=== PATIENT | male | born 1985 | race Hispanic/Latino ===

== ENCOUNTER 2018-08-12 06:36 | Day surgery (SDC) | payer OTHER ==
[2018-08-11 15:50] VITALS: BP 140/80
[2018-08-11 15:53] LABS: BASOPHILS % (AUTO) 0.9 % (0.0-5.0); EOSINOPHILS % (AUTO) 0.9 % (0.0-8.0); HEMATOCRIT 46.8 % (42-54); LYMPHOCYTES % (AUTO) 38.3 % (21.0-51.0); MEAN CORPUSCULAR HEMOGLOBIN 28.3 pg (27.0-33.0); MEAN CORPUSCULAR HGB CONC 34.4 g/dL (32.0-36.0); MEAN CORPUSCULAR VOLUME 82.3 fL (79-99); MONOCYTES % (AUTO) 10.5 % (3.0-13.0); NEUTROPHILS % (AUTO) 49.4 % (40.0-77.0); NUCLEATED RED BLOOD CELLS 0.2 % (0.0-0.19); PLATELET COUNT (AUTO) 238 K/uL (130-400); RED BLOOD CELL COUNT(AUTO) 5.69 MIL/uL (4.50-6.20); RED CELL DISTRIBUTION WIDTH 13.7 % (11.0-15.5); WHITE BLOOD COUNT (AUTO) 9.1 K/uL (4.8-10.8)
[2018-08-11 16:02] LABS: CREATININE 0.9 mg/dL (0.5-1.5); POTASSIUM 3.8 mmol/L (3.5-5.1)
[2018-08-12] VITALS (14 sets, daily range): BP systolic 94–137; BP diastolic 55–82
[~2018-08-12] VITALS: Ht 180.3 cm; Wt 119.8 kg
[~2018-08-12 06:36] MED LIST: ACET-2743 PO; CEFAZOLIN 3GM /D5W 100ML 100 ML IV SCH
[2018-08-12] MEDS ORDERED: LACTATED RINGERS 1000ML 1,000 ML IV ONE (07:00)
[2018-08-12] MEDS: CEFAZOLIN SODIUM 1 GM VIAL ONE ×2 (07:22→08:30)
--- NOTE | 2018-08-12 07:22 | NUR ---
VALUABLES: CLOTHING, GLASSES AND BLACK WATCH GIVEN TO - KELVIN MARTINEZ. PATIENT STATES LEFT WALLET IN CAR. NO OTHER VALUABLES BROUGHT TO HOSPITAL.
[2018-08-12] MEDS ORDERED: LIDOCAINE PF 2% 5ML ABBOJECT ONE ×2 (08:09→08:11)
[2018-08-12] MEDS ORDERED: NEOSTIGMINE 5MG/5ML SYR IV ONE (08:10)
[2018-08-12] MEDS ORDERED: ONDANSETRON HCL 4 MG/2 ML VIAL ONE (08:10)
[2018-08-12] MEDS ORDERED: PROPOFOL 10 MG/ML 20ML VIAL IV ONE (08:10)
[2018-08-12] MEDS ORDERED: GLYCOPYRROLATE 1 MG/5 ML SYRINGE ONE (08:10)
[2018-08-12] MEDS ORDERED: ROCURONIUM 10MG/1ML SYR 10 MG/ML ML ONE (08:10)
[2018-08-12] MEDS ORDERED: MIDAZOLAM HCL 1 MG/ML 2ML VIAL ONE (08:10)
[2018-08-12] MEDS ORDERED: FENTANYL CITRATE PF 50 MCG/1 ML 2ML VIAL ONE ×2 (08:11→09:10)
[2018-08-12] MEDS ORDERED: SUCCINYLCHOLINE CHLORIDE 20 MG/ML 10 ML VIAL ONE (08:13)
[2018-08-12] MEDS ORDERED: TYL3 PO (09:35)
[2018-08-12] MEDS ORDERED: CEPH500B PO (09:35)
[2018-08-12] MEDS ORDERED: IBUP-2077 PO (09:35)
== END 2018-08-12 11:15 | disposition home or self-care (01) ==
LOC: DAH 06:36
PROVIDERS: ATTEND Orthopaedic Surgery
DX: M94.262 Chondromalacia, left knee (principal); Z79.899 Other long term (current) drug therapy; Z68.41 Body mass index [BMI] 40.0-44.9, adult
CPT/HCPCS: 29870; 36415; 80048; 85025; A4218; A4606; A4649 ×2; A4930; A6223; J0330; J0690; J2001 ×2; J2250; J2405; J2704; J2710; J3010 ×2; J3490; J7120

== ENCOUNTER → 2020-10-30 | Outpatient (CLI) | payer OTHER ==
[~2020-10-30] MED LIST changes: -ACET-2743 PO; +ALBUTEROL SULFATE 0.083% 2.5 MG/3 ML INH IH ONE; -CEFAZOLIN 3GM /D5W 100ML 100 ML IV SCH; +CEPH500B PO; +IBUP-2077 PO; +TYL3 PO
== END | disposition home or self-care (01) ==
LOC: RESP 09:07
PROVIDERS: ATTEND Orthopaedic Surgery
DX: J06.9 Acute upper respiratory infection, unspecified (principal)
CPT/HCPCS: 94060